=== PATIENT | male | born 1990 | race American Indian/Alaskan Native ===

== ENCOUNTER 2022-02-20 18:58 | Emergency (ER) | payer SELFPAY ==
[2022-02-20 20:39] VITALS: BP 183/111
--- NOTE | 2022-02-20 21:01 | XRay Report ---
Right ankle-3 views INDICATION: injury. COMPARISON: None available. IMPRESSION: Transversely oriented medial malleolus fracture with mild anteromedial displacement of t he distal fracture component and mild overlying soft tissue swelling. Ankle mortise is otherwise esse ntially preserved. Signer Name: Rivas Hernandes MD Signed: 02/20/2022 8:57 PM Workstation Name: [id number]
[2022-02-20] MEDS ORDERED: IBUPROFEN 800 MG TAB PO ONE (21:58)
[2022-02-20] MEDS ORDERED: HYDROcodone/ACETAMINOPHEN 5-325 MG TAB PO ONE (21:58)
[2022-02-20] MEDS ORDERED: TETANUS,DIPHTHERIA TOXOID ADULT 0.5 ML INJ IM ONE (21:58)
--- NOTE | 2022-02-20 22:02 | Emergency Department Report ---
ED Lower Extremity HPI - General Chief Complaint: Extremity Injury, Lower Stated Complaint: SWOLLEN ANKLE Time Seen by Provider: 02/20/22 21:44 Source: patient Mode of arrival: Ambulatory Limitations: No Limitations - History of Present Illness Initial Comments: 31-year-old healthy male presenting with ankle injury. Patient reports he was playing basketball about 2 days ago when he sprained his ankle. Describes pain swelling ever since. He denies prior injury to his ankle, he denies any fall, he denies injury to his head neck or back, no chest pain, no shortness of breath, no weakness dizziness, no numbness tingling or paresthesia of the extremities. Patient has been walking on the extremity limping ever since. MD Complaint: ankle injury, fall -: days(s) Injury: Ankle: Right Improves With: nothing Worsens With: weight bearing Associated Symptoms: swelling, able to partially bear weight. denies: numbness, tingling - Related Data Previous Rx's Medication Instructions Recorded Last Taken Type Ibuprofen [Motrin 800 MG tab] 800 mg PO ONCE PRN #30 tablet 02/20/22 Unknown Rx cephALEXin [Keflex] 500 mg PO Q12HR 5 Days #10 cap 02/20/22 Unknown Rx traMADoL [Ultram 50 MG tab] 50 mg PO Q6HR PRN #12 tablet 02/20/22 Unknown Rx Allergies Allergy/AdvReac Type Severity Reaction Status Date / Time No Known Allergies Allergy Verified 02/20/22 22:00 ED Review of Systems ROS: Stated complaint: SWOLLEN ANKLE Other details as noted in HPI Constitutional: no symptoms reported Eyes: as per HPI ENT: denies: throat pain Respiratory: denies: cough, orthopnea Cardiovascular: denies: chest pain, palpitations, dyspnea on exertion Endocrine: denies: excessive sweating, intolerance to cold, intolerance to heat Gastrointestinal: denies: abdominal pain, nausea, vomiting, diarrhea Genitourinary: denies: urgency, dysuria, frequency Musculoskeletal: joint swelling, arthralgia. denies: back pain Skin: change in color Neurological: denies: headache, numbness, paresthesias Psychiatric: denies: anxiety, depression, auditory hallucinations Hematological/Lymphatic: denies: easy bleeding ED Past Medical Hx - Social History Smoking Status: Current Some Day Smoker Substance Use Type: Alcohol - Medications Home Medications: Home Medications Medication Instructions Recorded Confirmed Last Taken Type Ibuprofen [Motrin 800 MG tab] 800 mg PO ONCE PRN #30 tablet 02/20/22 Unknown Rx cephALEXin [Keflex] 500 mg PO Q12HR 5 Days #10 cap 02/20/22 Unknown Rx traMADoL [Ultram 50 MG tab] 50 mg PO Q6HR PRN #12 tablet 02/20/22 Unknown Rx ED Physical Exam - General Limitations: No Limitations General appearance: alert, in no apparent distress - Head Head exam: Present: atraumatic - Eye Eye exam: Present: normal appearance Pupils: Present: normal accommodation - ENT ENT exam: Present: normal exam, normal orophraynx - Neck Neck exam: Present: normal inspection. Absent: tenderness - Respiratory Respiratory exam: Present: normal lung sounds bilaterally. Absent: respiratory distress - Cardiovascular Cardiovascular Exam: Present: regular rate, normal rhythm - GI/Abdominal GI/Abdominal exam: Present: soft, normal bowel sounds - Extremities Exam Extremities exam: Present: tenderness, pedal edema, joint swelling - Expanded Lower Extremity Exam Right Ankle exam: Present: tenderness, swelling, laceration Neuro vascular tendon exam: Present: significant pain with passive ROM of distal joint. Absent: sensory deficit, tendon deficit Gait: Positive: observed and limited by pain 1 - Overall swelling of the ankle and the foot, bony tenderness over the medial malleolus area, 2 - Patient has a 2 cm l skin tear. - Back Exam Back exam: Present: normal inspection, full ROM - Neurological Exam Neurological exam: Present: alert, oriented X3 - Psychiatric Psychiatric exam: Present: normal affect, normal mood - Skin Skin exam: Present: warm, dry - Other Other exam information: Cap refill sensation is intact, limited ROM secondary to pain and swelling. ED Course Vital Signs 02/20/22 20:38 Temperature 98.9 F Pulse Rate 75 Respiratory 20 Rate Blood Pressure 183/111 [Right] O2 Sat by Pulse 98 Oximetry ED Lower Extremity MDM - Radiology Data Radiology results: report reviewed IMPRESSION: Transversely oriented medial malleolus fracture with mild anteromedial displacement of the distal fracture component and mild overlying soft tissue swelling. Ankle mortise is otherwise essentially preserved. Signer Name: Rivas Hernandes MD Signed: 02/20/2022 8:57 PM Workstation Name: [id number] - Medical Decision Making Ankle injury while playing basketball x2 days presents with swelling She is neurovascularly intact, with intact pulses and sensation and cap refill full however would need to follow-up with surgery. X-rays today show IMPRESSION: Transversely oriented medial malleolus fracture with mild anteromedial displacement of the distal fracture component and mild overlying soft tissue swelling. Ankle mortise is otherwise essentially preserved. Wound care provided, with topical antibiotic ointment, patient placed in a [place] splint for support, post nonweightbearing with crutches, Rx for pain management, referral and strict instructions to follow-up with orthopedic. I encouraged patient to make a call, get an appointment as he does need to follow- up. RICE therapy, keeping the live extremity elevated, and have also provided on some prophylactic antibiotics for the open wound. Patient verbalized understanding of everything that discussed. Critical care attestation.: If time is entered above; I have spent that time in minutes in the direct care of this critically ill patient, excluding procedure time. ED Disposition Clinical Impression: Fracture of malleolus, right ankle, closed, Fall Disposition: HOME / SELF CARE / HOMELESS Is pt being admited?: No Does the pt Need Aspirin: No Condition: Stable Instructions: Ankle Fracture Additional Instructions: Make sure you keep your extremity elevated, avoid bearing weight, use a crutch for support, and be sure to follow-up with orthopedic doctor as we discussed. Ice the extremity, take prescribed medicines, and return to the emergency department immediately if worsening pain, swelling, numbness or tingling Prescriptions: cephALEXin [Keflex] 500 mg PO Q12HR 5 Days #10 cap Ibuprofen [Motrin 800 MG tab] 800 mg PO ONCE PRN #30 tablet PRN Reason: Pain , Severe (7-10) traMADoL [Ultram 50 MG tab] 50 mg PO Q6HR PRN #12 tablet PRN Reason: Pain Referrals: JACKELIN MACK MD [Staff Physician] - 3-5 Days
== END 2022-02-21 02:50 | disposition home or self-care (01) ==
LOC: ED 18:58
DX: S82.51XA Displaced fracture of medial malleolus of right tibia, initial encounter for closed fracture (principal); F17.200 Nicotine dependence, unspecified, uncomplicated; F10.20 Alcohol dependence, uncomplicated; W19.XXXA Unspecified fall, initial encounter; Y93.89 Activity, other specified; Y92.89 Other specified places as the place of occurrence of the external cause; Y99.8 Other external cause status
CPT/HCPCS: 90471; 90714; 96372; 99283